=== PATIENT | male | born 1980 | race Caucasian/White ===

== ENCOUNTER 2017-08-25 02:36 | Emergency (ER) | payer OTHER ==
[2017-08-25 03:08] VITALS: BP 144/88
--- NOTE | 2017-08-25 03:16 | ED ---
Jared Avalos Tiffany, scribed for Jabier Marvin on 08/25/17 at 0300 . - HPI Summary HPI Summary: This patient is a 37 year old M presenting to [facility] with a chief complaint of needle stick in his left thigh since minutes ago. The patient rates the pain 0/ 10 in severity. Symptoms aggravated by nothing. Symptoms alleviated by nothing. The patient was drawing another patients blood when he was stuck with the needle. - History of Current Complaint Chief Complaint: EDGeneral Stated Complaint: NEEDLE STICK Time Seen by Provider: 08/25/17 02:46 Date of Incident: 08/25/17 Time of Incident: 02:30 PMH/Surg Hx/FS Hx/Imm Hx Previously Healthy: Yes Endocrine/Hematology History: Denies: Hx Diabetes Cardiovascular History: Denies: Hx Pacemaker/ICD History: Denies: Hx Renal Disease EENT History: Denies: Hx Deafness Infectious Disease History: No Infectious Disease History: Denies: Traveled Outside the [place] in Last 30 Days - Family History Known Family History: Positive: Other - Pt denies knowledge of relevant family history - Social History Alcohol Use: Occasionally Hx Substance Use: No Substance Use Type: Reports: None Hx Tobacco Use: No Smoking Status (MU): Never Smoked Tobacco Review of Systems Negative: Fever Positive: Other - Needle stick in left thigh All Other Systems Reviewed And Are Negative: Yes Physical Exam - Summary Physical Exam Summary: Appearance: Well appearing, no pain distress Skin: Puncture wound over left thigh, no active bleeding Head/face: normal Eyes: EOMI, PRAVEENA ENT: normal Neck: supple, non-tender Respiratory: CTA, breath sounds present Cardiovascular: RRR, pulses symmetrical Abdomen: non-tender, soft Bowel: present Musculoskeletal: normal, strength/ROM intact Neuro: normal, sensory motor intact, A&Ox3 Triage Information Reviewed: Yes Vital Signs On Initial Exam: Initial Vitals Temp Pulse Resp BP Pulse Ox 97.8 F 84 16 141/88 97 08/25/17 02:39 08/25/17 02:39 08/25/17 02:39 08/25/17 02:39 08/25/17 02:39 Vital Signs Reviewed: Yes - Roshan Coma Scale Coma Scale Total: 15 Diagnostics - Vital Signs Vital Signs Temp Pulse Resp BP Pulse Ox 08/25/17 02:39 97.8 F 84 16 141/88 97 - Laboratory Lab Statement: Any lab studies that have been ordered have been reviewed, and results considered in the medical decision making process. Needlestick Course/Dx - Course Course Of Treatment: This patient is a 37 year old M presenting to [facility] with a chief complaint of needle stick in his left thigh since minutes ago. Bloodwork obtained. Patient refused the post-exposure prophylaxis for hiv when offered. Patient will be discharged with follow up from PCP. The patient is agreeable with this plan. - Diagnoses Provider Diagnoses: Needle stick to left thigh Discharge - Discharge Plan Condition: Stable Disposition: HOME Patient Education Materials: Needle Stick Injuries (ED) Referrals: No Primary Care Phys,NOPCP [Primary Care Provider] - Additional Instructions: Follow up with your Primary Care Provider in 3 days. Return to the Emergency Room if current symptoms worsen or if new symptoms develop. The documentation as recorded by the Jared hu Tiffany accurately reflects the service I personally performed and the decisions made by , Jabier Marvin.
[2017-08-25 14:55] LABS: Rapid HIV INT CONT QC Line Present; Rapid HIV Kit Lot# HO46007
== END 2017-08-25 03:05 | disposition home or self-care (01) ==
LOC: ED 02:36
DX: S71.132A Puncture wound without foreign body, left thigh, initial encounter (principal); W46.1XXA Contact with contaminated hypodermic needle, initial encounter; Z53.29 Procedure and treatment not carried out because of patient's decision for other reasons; Y92.9 Unspecified place or not applicable
CPT/HCPCS: 36415; 80074; 86703; 99281

== ENCOUNTER 2017-09-22 01:20 | Emergency (ER) | payer OTHER ==
[2017-09-22 02:01] LABS: ABS Basophils 0 10^3/ul (0-0.2); ABS Eosinophils 0.1 10^3/ul (0-0.6); ABS Lymphocytes 2.9 10^3/ul (1.0-4.8); ABS Monocytes 0.7 10^3/ul (0-0.8); ABS Neutrophils 6.1 10^3/ul (1.5-7.7); ABS Nucleated RBC 0 10^3/ul; Eosinophil % 1.3 % (0-6); Hematocrit 47 % (42-52); Lymphocyte % 29.6 % (25-47); Mean Corpuscular HGB Conc 34 g/dl (31-36); Mean Corpuscular Hemoglobin 30 pg (27-31); Mean Corpuscular Volume 89 fL (80-94); Mean Platelet Volume 8 um3 (7.4-10.4); Nucleated Red Blood Cells % 0.1; Platelet Count 278 10^3/ul (150-450); Red Blood Count 5.28 10^6/ul (4.0-5.4); Red Cell Distribution Width 13 % (10.5-15); White Blood Count 9.8 10^3/ul (3.5-10.8)
[2017-09-22 02:18] LABS: INR 0.89 (0.77-1.02)
[2017-09-22 02:22] LABS: EGFR Non-African American 93.9 (>60)
[2017-09-22 02:58] VITALS: BP 124/81
--- NOTE | 2017-09-22 04:59 | ED ---
Fco Avalos Nikita scribBecca Lawrence MD on 09/22/17 at 0155 . HPI Chest Pain - HPI Summary HPI Summary: This patient is a 37 year old M presenting to [facility] with a chief complaint of chest pain since yesterday. Patient has been driving for 24 hr. The patient rates the pain 1/10 in severity. Symptoms aggravated and alleviated by nothing. Patient reports SOB, diaphoresis, coughing, calf tightness, and tachycardia. Patient denies chest pain when taking deep breathing. - History of Current Complaint Chief Complaint: EDGeneral Time Seen by Provider: 09/22/17 01:36 Hx Obtained From: Patient Onset/Duration: Started Days Ago, Still Present Timing: Constant, Lasting Days Initial Severity: Mild Pain Intensity: 1 Pain Scale Used: 0-10 Numeric Aggravating Factor(s): Nothing Alleviating Factor(s): Nothing Associated Signs and Symptoms: Positive: Other: - Patient reports SOB, diaphoresis, coughing, calf tightness, and tachycardia. Patient denies chest pain when taking deep breathing. - Allergy/Home Medications Allergies/Adverse Reactions: Allergies Allergy/AdvReac Type Severity Reaction Status Date / Time No Known Allergies Allergy Verified 08/25/17 02:40 PMH/Surg Hx/FS Hx/Imm Hx Endocrine/Hematology History: Denies: Hx Diabetes Cardiovascular History: Denies: Hx Pacemaker/ICD History: Denies: Hx Renal Disease Sensory History: Denies: Hx Deafness Infectious Disease History: No Infectious Disease History: Denies: Traveled Outside the [place] in Last 30 Days - Family History Known Family History: Positive: Diabetes - Social History Alcohol Use: Daily Hx Substance Use: No Substance Use Type: Reports: None Hx Tobacco Use: No Smoking Status (MU): Current Some Day Smoker Review of Systems Positive: Skin Diaphoresis Positive: Chest Pain, Other - tachycardia Positive: Shortness Of Breath, Cough Positive: Other - calf tightness All Other Systems Reviewed And Are Negative: Yes Physical Exam - Summary Physical Exam Summary: VITAL SIGNS: Reviewed. GENERAL: ~Patient is a well-developed and nourished female who is lying comfortable in the stretcher. Patient is not in any acute respiratory distress. HEAD AND FACE: No signs of trauma. No ecchymosis, hematomas or skull depressions. No sinus tenderness. EYES: PERRLA, EOMI x 2, No injected conjunctiva, no nystagmus. EARS: Hearing grossly intact. Ear canals and tympanic membranes are within normal limits. MOUTH: Oropharynx within normal limits. NECK: Supple, trachea is midline, no adenopathy, no JVD, no carotid bruit, no c- spine tenderness, neck with full ROM. CHEST: Mild localized tenderness over left chest wall. LUNGS: Clear to auscultation bilaterally. No wheezing or crackles. CVS: Regular rate and rhythm, S1 and S2 present, no murmurs or gallops appreciated. ABDOMEN: Soft, non-tender. No signs of distention. No rebound no guarding, and no masses palpated. Bowel sounds are normal. EXTREMITIES: FROM in all major joints, no edema, no cyanosis or clubbing. NEURO: Alert and oriented x 3. No acute neurological deficits. Speech is normal and follows commands. SKIN: Dry and warm Triage Information Reviewed: Yes Vital Signs On Initial Exam: Initial Vitals Temp Pulse Resp BP Pulse Ox 97.7 F 102 20 136/88 96 09/22/17 01:26 09/22/17 01:26 09/22/17 01:26 09/22/17 01:26 09/22/17 01:26 Vital Signs Reviewed: Yes - D[place] Coma Scale Coma Scale Total: 15 Diagnostics - Vital Signs Vital Signs Temp Pulse Resp BP Pulse Ox 09/22/17 01:26 97.7 F 102 20 136/88 96 - Laboratory Result Diagrams: 09/22/17 01:50 09/22/17 01:50 Lab Statement: Any lab studies that have been ordered have been reviewed, and results considered in the medical decision making process. - Radiology CXR Radiology Interpretation Completed By: ED Physician - No acute processes. - EKG 0138 Cardiac Rate: NL EKG Rhythm: Sinus Rhythm - 95 BPM EKG Interpretation: Nonspecific T wave changes in the inferior leads. Re-Evaluation - Re-Evaluation First Eval Re-Evaluation Time: 02:40 Change: Improved Comment: Patient feels better. Discussed discharge plan with patient. Chest Pain Course/Dx - Course Course Of Treatment: This patient is a 37 year old M presenting to [facility] with a chief complaint of chest pain since yesterday. EKG reveals nonspecific T wave changes in the inferior leads. CXR reveals no acute findings. Patient will be discharged home and is agreeable with this plan. - Chest Pain Differential Diagnosis/HQI/PQRI: Other: - anxiety, atypical chest pain - Diagnoses Provider Diagnoses: Anxiety, Atypical chest pain Discharge - Discharge Plan Condition: Stable Disposition: HOME Patient Education Materials: Chest Pain (ED), Anxiety (ED) Referrals: [facility] [Provider Group] (Follow up with your PCP in 1-2 days.) Additional Instructions: RETURN TO THE EMERGENCY DEPARTMENT FOR CHANGING OR WORSENING SYMPTOMS. The documentation as recorded by the Fco hu Nikita accurately reflects the service I personally performed and the decisions made by Jose hernandez Abdul, MD.
--- NOTE | 2017-09-22 07:43 | RAD ---
INDICATION: Chest pain COMPARISON: None TECHNIQUE: An AP portable view obtained at 0210 hours is submitted. FINDINGS: Bones/Soft Tissues: There are no acute bony findings. Cardiomediastinal: The cardiomediastinal silhouette is normal. Lungs: There are no infiltrates. Pleura: There are no pleural effusions. Other: None IMPRESSION: NO ACTIVE DISEASE.
== END 2017-09-22 02:56 | disposition home or self-care (01) ==
LOC: ED 01:20
DX: R07.89 Other chest pain (principal); F41.9 Anxiety disorder, unspecified; F17.200 Nicotine dependence, unspecified, uncomplicated
CPT/HCPCS: 36415; 71045; 80053; 82550; 83880; 84484; 85025; 85379; 85610; 85652; 85730; 86140; 99282

== ENCOUNTER → 2017-11-25 17:01 | Emergency (ER) | payer SELFPAY ==
[2017-11-25 17:15] VITALS: BP 140/91
== END | disposition home or self-care (01) ==
LOC: UCEAST 17:01 → OHEAST 17:01
DX: Z00.00 Encounter for general adult medical examination without abnormal findings (principal)